=== PATIENT | female | born 1995 | race Caucasian/White ===

== ENCOUNTER 2016-05-01 23:59 | Emergency (ER) | payer OTHER ==
--- NOTE | ~2016-05-01 | CR142 ---
[facility] A Service of [facility] & [facility] RADIOLOGY TEXT RESULTS PATIENT: ANANTH MARTINI LOCATION: SED : 95 UNIT #: [id number] AGE: [address]: Haris Wong SEX: F ORDER DR: [id number] [place] [id number] E MR#: [id number] Acc #: [id number] NAME: ANANTH MARTINI : 1995 SEX: F STUDY DATE/TIME: 05/01/2016 23:53 UNIT: SED ROOM: STUDY DESCRIPTION: CR Hand Min 3 Views Rt Attending Physician: Haris Wong P.A.-C. Ordering Physician: Haris Wong P.A.-C. Primary Care Physician: Nancie Bailey MEDICAL IMAGING REPORT This report is preliminary unless electronic signature is present. EXAM Right hand 05/01/2016 23:53 INDICATION Right hand pain, swelling and bruising after injury 20 minutes prior to arrival. FINDINGS 3 views of the right hand are compared with 10/19/2015. There is some soft tissue swelling over the knuckles. No fracture or malalignment is identified. IMPRESSION Soft tissue swelling over the knuckles, otherwise negative right hand. Dictated by... Hossein Slade Jr., M.D. THIS IS AN ELECTRONICALLY VERIFIED REPORT Hossein Slade Jr., M.D. at 05/02/2016 10:00 PM ARMANI/ke TD: 05/02/2016 07:27 JOB #: [id number] MEDICAL IMAGING REPORT
[~2016-05-01 23:59] MED LIST: IBUPROFEN800 MG PO; NAPROXEN250 MG PO; NO MEDICATIONS
[2016-06-21] MEDS ORDERED: PRENATAL VITAM1 EAC2 (04:16)
== END 2016-05-02 00:38 | disposition home or self-care (01) ==
LOC: SED 23:59
DX: S60.221A Contusion of right hand, initial encounter (principal); F17.210 Nicotine dependence, cigarettes, uncomplicated; Y04.0XXA Assault by unarmed brawl or fight, initial encounter; Y92.89 Other specified places as the place of occurrence of the external cause
CPT/HCPCS: 73130; 99283

== ENCOUNTER 2016-06-08 08:41 | Emergency (ER) | payer OTHER ==
[2016-06-08] MEDS ORDERED: ZOFRAN ODT4 M1 (09:19)
[2016-06-21] MEDS ORDERED: PRENATAL VITAM1 EAC2 (04:16)
== END 2016-06-08 09:20 | disposition home or self-care (01) ==
LOC: SED 08:41
DX: N92.6 Irregular menstruation, unspecified (principal); R11.0 Nausea; F41.9 Anxiety disorder, unspecified; F17.200 Nicotine dependence, unspecified, uncomplicated; Z32.02 Encounter for pregnancy test, result negative; Z91.040 Latex allergy status
CPT/HCPCS: 84703; 99283

== ENCOUNTER 2016-06-09 09:30 | Emergency (ER) | payer OTHER ==
[~2016-06-09 09:30] MED LIST changes: +ZOFRAN ODT4 M1
[2016-06-09 10:41] LABS: URINE SOURCE CLEAN CATCH
[2016-06-09 10:47] LABS: URINE APPEARANCE CLEAR; URINE BILIRUBIN NEG (NEG); URINE BLOOD NEG (NEG); URINE COLOR YELLOW; URINE GLUCOSE NEG (NEG); URINE KETONE NEG (NEG); URINE LEUKOCYTE ESTERASE NEG (NEG); URINE NITRATE NEG (NEG); URINE PROTEIN NEG (NEG); URINE SPECIFIC GRAVITY 1.017 (1.003-1.035)
[2016-06-09 10:50] LABS: CULTURE INDICATED? NO
[2016-06-21] MEDS ORDERED: PRENATAL VITAM1 EAC2 (04:16)
== END 2016-06-09 11:35 | disposition home or self-care (01) ==
LOC: CED 09:30
PROVIDERS: Nurse Practitioner
DX: N92.0 Excessive and frequent menstruation with regular cycle (principal); F17.210 Nicotine dependence, cigarettes, uncomplicated; Z91.040 Latex allergy status
CPT/HCPCS: 81003; 84703; 99283

== ENCOUNTER 2016-06-21 04:52 | Emergency (ER) | payer OTHER ==
[~2016-06-21 04:52] MED LIST changes: +PRENATAL VITAM1 EAC2
== END 2016-06-21 05:04 | disposition home or self-care (01) ==
LOC: SED 04:52
DX: O21.9 Vomiting of pregnancy, unspecified (principal); F41.9 Anxiety disorder, unspecified; F32.9 Major depressive disorder, single episode, unspecified; O99.330 Smoking (tobacco) complicating pregnancy, unspecified trimester
CPT/HCPCS: 99283